=== PATIENT | female | born 1970 | race Caucasian/White ===

== ENCOUNTER 2019-09-04 01:50 | Emergency (ER) | payer OTHER ==
--- NOTE | 2019-09-04 01:54 | Emergency Department Record ---
History of Present Illness - General Stated Complaint: FLU LIKE SYMPTOMS - NAUSEA BODY ACHES Time Seen by Provider: 09/04/19 01:53 - Related Data Allergies Allergy/AdvReac Type Severity Reaction Status Date / Time prochlorperazine edisylate Allergy Unknown Unverified 10/28/13 10:00 [From COMPAZINE] prochlorperazine maleate Allergy Unknown Unverified 10/28/13 10:00 [From COMPAZINE] Allergies: Allergy Unknown Uncoded 10/28/13 10:00 Quality - Blood Pressure Screening Does Patient Have Any of the Following: No Systolic Measurement: ~
[2019-09-04] MEDS ORDERED: ONDANSETRON 4 MG ODT TABLET SL ONE (02:00)
--- NOTE | 2019-09-04 02:05 | Emergency Department Record ---
History of Present Illness - General Chief complaint: Flu Like Symptoms Stated complaint: FLU LIKE SYMPTOMS - NAUSEA BODY ACHES Time Seen by Provider: 09/04/19 01:53 Source: Patient Mode of Arrival: Ambulatory Limitations: No limitations - History of Present Illness Initial comments: 49 yo female presents with nausea (without vomiting), diarrhea, chills and body aches. The onset was late Monday. She drove up from [place] to help he sister with her health issues. No fever. No blood in the diarrhea. No significant abdominal pain. No back pain. No cough, congestion, or sore throat. No antibiotics in the last 6 weeks. No significant high risk travel. MD complaint: Diarrhea, Nausea -: Days(s) (1) Description of Vomiting: Watery Description of Diarrhea: Water Associated Abdominal Pain: No Location: Other (None) Radiation: None Severity: Mild Quality: Cramping Consistency: Intermittent Improves with: None Worsens with: Eating Context: Sick contacts Associated Symptoms: Nausea/vomiting - Related Data Home Medications Medication Instructions Recorded Confirmed Last Taken Albuterol Sulfate [Proair Hfa] 1 - 2 puff IH .EVERY 4-6 HOURS PRN 09/04/19 09/04/19 Unknown Fluticasone/Vilanterol [Breo 1 each IH DAILY 09/04/19 09/04/19 Unknown Ellipta 100-25 Mcg INH] Lisinopril [Prinivil] 10 mg PO QAM 09/04/19 09/04/19 Unknown Mepolizumab [Nucala] 100 mg SQ MONTHLY 09/04/19 09/04/19 Unknown Omeprazole 40 mg PO DAILY 09/04/19 09/04/19 Unknown Previous Rx's Medication Instructions Recorded Ondansetron [Zofran Odt] 4 mg PO Q8H #15 tab.rapdis 09/04/19 Allergies Allergy/AdvReac Type Severity Reaction Status Date / Time prochlorperazine edisylate Allergy Unknown Unverified 10/28/13 10:00 [From COMPAZINE] prochlorperazine maleate Allergy Unknown Unverified 10/28/13 10:00 [From COMPAZINE] Allergies: Allergy Unknown Uncoded 10/28/13 10:00 Travel/Exposure Screening - Travel/Exposure Within Last 30 Days Have you traveled within the last 30 days?: Yes Additional Travel Detail:: from [place] - Travel/Exposure Within Last Year Have you traveled outside the [place] in the last year?: No - Additonal Travel/Exposure Details Have you been exposed to anyone with a communicable illness?: No - Travel Symptoms Symptom Screening: Joint & Muscle Aches, Diarrhea Review of Systems Constitutional: Reports: Malaise, Weakness. Denies: Chills, Fever Eyes: Denies: Eye discharge ENT: Denies: Congestion, Throat pain Respiratory: Denies: Cough, Dyspnea, Hemoptysis, Wheezes Cardiovascular: Denies: Chest pain, Dyspnea on exertion, Palpitations, Syncope Endocrine: Denies: Fatigue Gastrointestinal: Reports: Diarrhea, Nausea. Denies: Abdominal pain, Co nstipation, Hematemesis, Hematochezia, Melena, Vomiting Genitourinary: Reports: Other. Denies: Dysuria, Incontinence, Retention, Urgency Musculoskeletal: Reports: Myalgia. Denies: Arthralgia, Back pain Skin: Denies: Bruising, Change in color, Rash Neurological: Denies: Headache, Weakness Psychiatric: Denies: Anxiety Hematological/Lymphatic: Denies: Easy bleeding, Easy bruising Physical Exam - General General Appearance: Alert, Oriented x3, Cooperative, No acute distress Limitations: No limitations - Head Head exam: Atraumatic, Normal inspection - Eye Eye exam: Normal appearance, PERRL. negative: Conjunctival injection, Scleral icterus - ENT ENT exam: Normal exam Ear exam: Normal external inspection Nasal Exam: Normal inspection Mouth exam: Normal external inspection - Neck Neck exam: Normal inspection. negative: Lymphadenopathy - Respiratory Respiratory exam: Normal lung sounds bilaterally. negative: Respiratory distress, Rhonchi, Stridor, Wheezes - Cardiovascular Cardiovascular Exam: Regular rate, Normal rhythm, Normal heart sounds Peripheral Pulses: 2+: Radial (L) - GI/Abdominal GI/Abdominal exam: Soft. negative: Distended, Guarding, Tenderness - Rectal Rectal exam: Deferred - exam: Deferred - Extremities Extremities exam: Normal inspection. negative: Calf tenderness, Pedal edema, Tenderness - Back Back exam: Denies: CVA tenderness (R), CVA tenderness (L) - Neurological Neurological exam: Alert, Oriented X3 - Psychiatric Psychiatric exam: Normal affect, Normal mood. negative: Agitated, Anxious - Skin Skin exam: Dry, Intact, Normal color, Warm. negative: Cyanosis, Diaphoretic, Erythema, Mottled Course - Reevaluation(s) Reevaluation #1: 09/04/19 02:19 The Influenza swab is negative We discussed the results of the tests and questions were answered. The patient is doing well and is comfortable with DC. We discussed at length reasons to immediately return to the ED as well as close follow up. We discussed that she is contagious and should avoid time around others that have compromised immune systems Disposition Disposition: Discharge Clinical Impression: Nausea, vomiting, and diarrhea Disposition: Home, Self-Care Condition: (1) Good Instructions: Acute Diarrhea (ED) Additional Instructions: You are likely contagious with the diarrhea. Take all precautions to avoid giving this to others Return to the ER for a recheck immediately if worse, any new concerns or questions Take the prescriptions provided as directed Prescriptions: Ondansetron [Zofran Odt] 4 mg PO Q8H #15 tab.rapdis Forms: Patient Portal Access Time of Disposition: 02:20 Quality - Quality Measures Quality Measures: N/A - Blood Pressure Screening Does Patient Have Any of the Following: No Blood Pressure Classification: Normal BP Reading Systolic Measurement: 112 Diastolic Measurement: 74 Screening for High Blood Pressure: < Normal BP, F/U Not Required > [[id number]]
[2019-09-04 02:15] LABS: INFLUENZA A NEGATIVE (NEGATIVE); INFLUENZA B NEGATIVE (NEGATIVE)
== END 2019-09-04 02:47 | disposition home or self-care (01) ==
LOC: ER 01:50
DX: R19.7 Diarrhea, unspecified (principal); R11.0 Nausea
CPT/HCPCS: 87400; 99283